=== PATIENT | male | born 1945 | race Asian ===

== ENCOUNTER 2019-03-09 10:37 | Emergency (ER) | payer OTHER ==
[~2019-03-09] VITALS: Ht 165.1 cm; Wt 71.3 kg
[~2019-03-09 10:37] MED LIST: ACET500C5 PO; AZIT250T PO; D-ME473S2 PO; IBUP-1542 PO; TYL500 PO
[2019-03-09 10:42] VITALS: Ht 165.1 cm; Wt 71.3 kg
[2019-03-09] MEDS ORDERED: ACETAMINOPHEN 500 MG TAB PO STA (12:13)
[2019-03-09] MEDS ORDERED: IBUPROFEN 600 MG TAB PO ONE (12:30)
[2019-03-09 14:24] VITALS: BP 114/71; PULSE 71; RESP 18
== END 2019-03-09 14:25 | disposition home or self-care (01) ==
LOC: FTE 10:37
DX: M16.11 Unilateral primary osteoarthritis, right hip (principal); E11.9 Type 2 diabetes mellitus without complications; I10 Essential (primary) hypertension
CPT/HCPCS: 73502; 73510